=== PATIENT | female | born 1985 | race Caucasian/White ===

== ENCOUNTER 2022-08-11 21:15 | Emergency (ER) | payer OTHER ==
[~2022-08-11] VITALS: Ht 175.3 cm; Wt 124.7 kg
--- NOTE | 2022-08-11 22:05 | NUR ---
BIBSELF FROM HOME C/O LLE PAIN X2 DAYS. HX D&C 07/18/22
--- NOTE | 2022-08-11 22:06 | NUR ---
DR LAW ANDUJAR AT PT'S BEDSIDE FOR EVAL
--- NOTE | 2022-08-11 22:29 | NUR ---
VENOUS DUPLEX DONE AT BEDSIDE
--- NOTE | 2022-08-11 23:13 | NUR ---
Patient discharged to home in stable condition. Written and verbal after care instructions given. Patient verbalizes understanding of instruction.
[2022-08-11 23:14] VITALS: BP 117/73; TEMP 98.1
== END 2022-08-11 23:15 | disposition home or self-care (01) ==
LOC: ER 21:24
DX: I82.492 Acute embolism and thrombosis of other specified deep vein of left lower extremity (principal); Z98.890 Other specified postprocedural states
CPT/HCPCS: 93971-TC